=== PATIENT | male | born 1945 | race Caucasian/White ===

== ENCOUNTER → 2023-03-18 10:39 | Outpatient (REF) | payer MEDICARE, SELFPAY ==
--- NOTE | 2023-03-18 10:44 | CA_ITS ---
Transthoracic Echocardiogram Patient (Last, First, Middle): Arturo Madrid, Gender: Male Date of : 1945 Age: 77 Procedure Date: 03/18/2023 Procedure Type: Transthoracic Echocardiogram Location: [facility] Height: 177.8 cm Weight: 73.94 kg BSA: 1.91 m2 Heart Rate: bpm BP: 148 / 70 mmHg Farm Owner Operator: TO Referring MD: Toña Constantino [employer]IATE Symptoms: ESSEN HTN Study Quality: Fair Conclusions: - Normal left ventricular size and systolic function. The visually estimated ejection fraction is between 55-60%. - There is moderate septal asymmetric hypertrophy. - Normal right ventricular cavity size and systolic function. - There is mild aortic valve regurgitation. 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 Findings Left Ventricle Normal left ventricular size and systolic function. The visually estimated ejection fraction is between 55-60%. There is no evidence of regional wall motion abnormalities. Diastolic function is normal for age. There is moderate septal asymmetric hypertrophy. Normal global longitudinal strain. Right Ventricle Normal right ventricular cavity size and systolic function. Atria Both atria are normal in size. Aortic Valve Normal aortic valve structure and function. There is no aortic valve stenosis. There is mild aortic valve regurgitation. Mitral Valve Normal mitral valve structure and function. There is trace mitral valve regurgitation. There is no mitral valve stenosis. Pulmonic Valve Normal pulmonic valve structure and function. There is trace pulmonic valve regurgitation. Tricuspid Valve Normal tricuspid valve structure and function. There is trace tricuspid valve regurgitation. Normal right atrial pressure. There is no evidence of pulmonary hypertension. 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 The visualized portions of the pulmonary artery and branches are normal. Venous The inferior vena cava is normal in size and collapses greater than 50% with inspiration. Pericardium/Pleural There is no evidence of pericardial effusion. Prior Study Comparison No prior study available for comparison. Measurements 2D Linear Measurements IVSd: 1.43 0.6-0.9/0.6-1.0 cm LVIDd: 4.36 3.9-5.3/4.2-5.9 cm LVIDd Index: 2.28 2.4-3.2/2.2-3.1 cm/m2 LVIDs: 2.70 2.0-3.6 cm LVPWd: 1.03 0.7-1.1 cm LA Diam: 3.80 2.7-3.8/3.0-4.0 cm LAIDs Index: 1.99 1.5-2.3 cm/m2 LV Mass: 243.71 67-162/88-224 g LV Mass Index: 127.59 43-95/49-115 g/m2 LVOT Diam: 2.20 3.0+(-)1.3 cm 2D Systolic Function EF 4C: 60.90 >55% EF 2C: 65.40 >55% EF BiP: 62.10 >55% Mitral Valve MV Pk E: 0.72 MV PK A: 0.59 MV Decel Time: 196.00 E/A: 1.20 E'Lateral: 8.70 E'Medial: 5.77 E/E' Med: 12.40 E/E' Lat: 8.20 PHT: 57.00 MVA PHT: 3.86 Decel Gray: 3.65 Aortic Valve AoV Pk Akash: 1.32 AoV Mn Akash: 0.95 AoV VTI: 0.31 AoV Pk Grad: 7.00 Aov Mn Grad: 4.00 JACKSON Cont.VTI: 3.66 LVOT LVOT Pk Akash: 1.22 LVOT Mn Akash: 0.74 LVOT VTI: 0.30 LVOT Pk Grad: 6.00 LVOT Mn Grad: 3.00 LVOT Diam: 2.20 LVOT Area: 3.80 Diastolic Function MV Pk E: 0.72 MV Pk A: 0.59 E/A: 1.20 E'Medial: 5.77 E/E' Med: 12.40 E' Laterial: 8.70 E/E' Lat: 8.20 Right Ventricle TAPSE (mm): 22.60 TVS' Akash: 13.70 Tricuspid Valve TR Pk Akash: 2.05 TR Pk Grad: 17.00 RA Press: 3.00 RVSP: 20.00 Great Vessels Aorta Sinus of Valsalva: 3.30 2.0-3.[address] [place]: 2.49 1.7-3.4 cm Ao Asc: 3.70 2.1-3.4 cm Updated in Other Vendor System with Status of Final Estevan Ivey MD electronically signed on 03/21/2023 10:37:43 AM with status of Final
== END ==
LOC: HO.CARD 10:39
PROVIDERS: Visit Provider Nurse Practitioner Family
DX: I10 Essential (primary) hypertension (principal)
CPT/HCPCS: 93306